=== PATIENT | female | born 1965 | race Caucasian/White ===

== ENCOUNTER 2018-05-01 07:21 | Day surgery (SDC) | payer OTHER ==
[2018-04-11 08:26] VITALS: BMI 37.4
[2018-05-01] MEDS ORDERED: ROPIVACAINE HCL 0.5% 30ML VIAL ONE (08:36)
[2018-05-01] MEDS ORDERED: BUPIVACAINE 0.75% IN DEXTROSE/PF 2ML AMPULE NR ONE (08:38)
[2018-05-01] MEDS ORDERED: MIDAZOLAM HCL 2 MG/2 ML SINGLE DOSE VIAL ONE ×2 (08:38)
[2018-05-01] MEDS ORDERED: ONDANSETRON 4 MG/2 ML VIAL IVPUSH PRN (08:54)
[2018-05-01] MEDS ORDERED: oxyCODONE HCL 5 MG TABLET PO PRN ×2 (08:54)
[2018-05-01] MEDS ORDERED: LACTATED RINGERS SOLUTION 1,000 ML IV SCH (09:00)
--- NOTE | 2018-05-01 09:38 | HP ---
History & Physical Update - History History: No Change - Physical Physical: No Change - Assessment Assessment: No Change - Plan Plan: No Change (Here today for elective robotic BSO. No new complaints or medications.)
[2018-05-01] MEDS ORDERED: PROPOFOL 20 ML ONE ×2 (09:45→11:20)
[2018-05-01] MEDS ORDERED: ceFAZolin 2 GRAM PREMIX BAG IVPB ONE (10:11)
[2018-05-01] MEDS ORDERED: ePHEDrine SULFATE 50 MG/1 ML AMPULE ONE (10:54)
[2018-05-01] MEDS ORDERED: ROCURONIUM BROMIDE 50 MG/5 ML VIAL ONE ×2 (11:01→12:04)
[2018-05-01] MEDS ORDERED: KETAMINE HCL 200 MG/20 ML VIAL ONE (11:04)
[2018-05-01] MEDS ORDERED: KETOROLAC TROMETHAMINE 30 MG/1 ML VIAL ONE (11:04)
[2018-05-01] MEDS ORDERED: ceFAZolin SODIUM 1 GM VIAL ONE (11:11)
[2018-05-01] MEDS ORDERED: DEXAMETHASONE SOD PHOSPHATE 4 MG/1 ML VIAL ONE (11:11)
[2018-05-01] MEDS ORDERED: LIDOCAINE HCL/PF 2% SDV 5ML VIAL ONE (11:11)
[2018-05-01] MEDS ORDERED: SODIUM CHLORIDE 0.9% P/F 10 ML VIAL IJ ONE (11:11)
[2018-05-01] MEDS ORDERED: NEOSTIGMINE METHYLSULFATE 0.5 MG/ML - 10 ML MDV ONE (11:22)
[2018-05-01] MEDS ORDERED: GLYCOPYRROLATE 0.2 MG/1 ML VIAL ONE ×2 (11:24→15:18)
--- NOTE | 2018-05-01 11:58 | SURG ---
Surgery Demonstrator Knitting Note Demonstrator Knitting: Vladimir Cortez PA-C Date of Service: 05/01/18 Diagnosis: ovarian cysts Procedure: Robotic BSO I was present for the entirety of the operative procedure. For further detail, please refer to operative report. Visit type - Case Type Case Type: Scheduled - New patient This patient is new to me today: Yes Date on this admission: 05/01/18
--- NOTE | 2018-05-01 11:58 | OP ---
Operative Note - Note: Operative Date: 05/01/18 Pre-Operative Diagnosis: Ovarian mass Operation: Robotic BSO Post-Operative Diagnosis: Same as Pre-op Surgeon: Crissy Ohara Distribution Tech: Vladimir Cortez Anesthesiologist/HOUSING COURT JUDGE: Sergey Swanson Anesthesia: General Specimens Removed: ovaries Estimated Blood Loss (mls): 12 Fluid Volume Replaced (mls): 1,000 Operative Report Dictated: Yes
[2018-05-01] MEDS ORDERED: ONDANSETRON 4 MG/2 ML VIAL ONE (13:06)
[2018-05-01 16:37] VITALS: BP 119/61; PULSE 81; TEMP 98.1
--- NOTE | 2018-05-01 18:26 | OP ---
DATE OF OPERATION: 05/01/2018 PREOPERATIVE DIAGNOSIS: Left adnexal cyst. POSTOPERATIVE DIAGNOSIS: Left adnexal cyst. PROCEDURE: Robotic assisted bilateral salpingooophorectomy. SURGEON: Crissy Ohara M.D. WELFARE AIDE: Latricia Verduzco ANESTHESIA: General endotracheal anesthesia and local. ESTIMATED BLOOD LOSS: 25 mL. COMPLICATIONS: None. INDICATION: This is a 53-year-old with history of 2 cystic lesions seen on the left ovary. Right ovary was not seen on pelvic ultrasound. The patient was counseled regarding surgical management. Risks, benefits, indications, and alternatives were discussed with patient. All questions were answered. Informed consent was signed. We had discussed possibly uterine hysteroscopy, which she declined. FINDINGS: Left ovary with a large 7-cm cyst which was serous and smooth walled and unilocular and an additional 4-cm cyst which appeared to be an endometrioma and was densely adherent in the left pelvic sidewall and cul-de-sac. The right ovary appeared to be enlarged with old endometriosis as it had been splayed out in the right pelvic sidewall as well as on the rectum medially. The uterus normal, tubes appeared normal. There was no other intraabdominal evidence of disease. There was some evidence of old endometriosis in the pelvis. PROCEDURE: The patient was taken to the operating room, placed in the dorsal supine position. General endotracheal anesthesia was obtained without difficulty. She was placed in the dorsal lithotomy position in Keanu stirrups and prepped and draped in normal sterile fashion. Birch catheter was placed in bladder speculum was placed in the vagina, and the cervix was grasped with a single-toothed tenaculum and sounded to approximately 6 cm. A ZUMI uterine manipulator was then placed. Tenaculum and speculum were then removed. The attention was turned to the patient's abdomen. An 8-mm incision was made with a scalpel while tenting the anterior abdominal wall. The Veress needle was inserted intraabdominally. The abdomen was insufflated with CO2 gas. Additional 8-mm trocar was placed, intraabdominal placement was confirmed by direct visualization of the laparoscope. Additional 8-mm trocars placed in the right middle quadrant and left middle quadrant, and a 12-mm trocar was placed in the suprapubic area in the midline. All trocars were placed and after visualization a thorough exam of the abdomen and pelvis revealed the above noted findings. Peritoneal washings were taken using normal saline. The left adnexa was elevated. The mass was dissected away from the cul-de-sac and gently peeled off the peritoneum. The left retroperitoneum was opened. The left ureter was identified to be well away from the field of dissection, the infundibular pelvic ligament on the left was clamped, cauterized, and transected. This was carried through the broad ligament and the uteroovarian ligament and the fallopian tube at the cornua of the uterus. Upon dissection of the endometrium from the pelvic peritoneum to which it was densely adherent, there was an of dark old blood which was thick and black. The right adnexa was elevated. The right ureter was identified to be well away from the field of dissection. The right infundibular pelvic ligament on the left was clamped, cauterized, and transected. This was carried through the broad ligament and the uteroovarian ligament and the fallopian tube at the cornua of the uterus. The right ovary was densely adherent to the rectum. It was gently peeled away. There appeared to be a small portion of the uterine remnant which was densely adherent to the rectum. This was left to avoid rectal injury. The bilateral adnexa were handed off the field in an EndoCatch bag through the 12-mm incision. Pelvis was thoroughly irrigated and noted to be hemostatic. All trocars removed. The da Jacquelyn robot was then undocked. Skin was closed with 4-0 Monocryl. The suprapubic incision was closed with the fascia using 0 Vicryl in a [id number] stitch. Skin was closed with 4-0 Monocryl. Dermabond was applied. The patient was extubated and transferred in stable condition to the PACU. The Birch catheter was removed prior to extubation. Justin [id number]
--- NOTE | 2018-05-04 14:25 | PATH ---
Cytology Non-Gynecological Report Patient Name: ESPINOZA HECK [facility]. Rec. #: [id number] /Age/Gender: 1965 (Age: 53) / F Account: [id number] Location: AMBULATORY SURG Taken: 05/01/2018 Received: 05/01/2018 Reported: 05/02/2018 Physicians: Crissy Ohara MD Specimen(s) Received PERITONEAL WASHING Clinical History Ovarian cyst Final Diagnosis PERITONEAL WASHING FOR CYTOLOGY: SATISFACTORY FOR EVALUATION. NO MALIGNANT CELLS IDENTIFIED. REACTIVE MESOTHELIAL CELLS AND MACROPHAGES PRESENT. Note: Also see concurrent pathology report [id number]. Electronically Signed Frandy Flower M.D. Gross Description Approximately 60 cc of bloody fluid received fresh. One slide and one cell block prepared.
--- NOTE | 2018-05-04 14:26 | PATH ---
Surgical Pathology Report Patient Name: ESPINOZA HECK [facility]. Rec. #: [id number] /Age/Gender: 1965 (Age: 53) / F Account: [id number] Location: AMBULATORY SURG Taken: 05/01/2018 Received: 05/01/2018 Reported: 05/03/2018 Physicians: Crissy Ohara MD Specimen(s) Received A: CERVICAL POLYP B: RIGHT FALLOPIAN TUBE AND OVARY C: LEFT FALLOPIAN TUBE AND OVARY WITH CYST Clinical History Cyst of the ovary Final Diagnosis A. CERVICAL POLYP, BIOPSY: FRAGMENTS OF ENDOCERVICAL POLYP AND BENIGN CERVICAL SQUAMOUS MUCOSA. B. FALLOPIAN TUBE AND OVARY, RIGHT, ROBOTIC SALPINGO-OOPHORECTOMY: OVARY WITHOUT SIGNIFICANT PATHOLOGIC FINDINGS. FALLOPIAN TUBE WITH PARATUBAL CYST. DENSE FIBROUS ADHESIONS. C. OVARY, CYST, FALLOPIAN TUBE, LEFT, ROBOTIC SALPINGO-OOPHORECTOMY: OVARY WITH SEROUS CYSTADENOMA AND ENDOMETRIOMA. FALLOPIAN TUBE WITH ENDOSALPINGOSIS. DENSE FIBROUS ADHESIONS. Electronically Signed Maribell Ford M.D. Gross Description A. Received in formalin labeled "cervical polyp," is a 0.8 x 0.3 x 0.2 cm domingo-pink soft tissue fragment admixed with blood-tinged mucous. The formalin is filtered and the specimen is entirely submitted in one cassette. B. Received in formalin labeled "right fallopian tube and ovary," is a 4.5 cm in length fimbriated fallopian tube. The outer surface is domingo-pink with tubal ovarian adhesions and a 0.7 cm greatest dimension paratubal cyst attached to the fimbria. Sectioning reveals an unremarkable lumen. The right ovary measures 3.8 x 1.5 x 0.7 cm. The outer surface is domingo yellow, smooth and convoluted. Sectioning reveals unremarkable ovarian parenchyma. Retail Coverage Merchandiser sections are submitted in 3 cassettes as follows: 1-fimbria; 2-cross sections of fallopian tube; 3-ovary. C. Received in formalin labeled "left fallopian tube, ovary and cyst," is a 6 cm in length fimbriated fallopian tube with an 8.0 x 5.5 x 2.5 cm attached cystic structure. The outer surface of the fallopian tube is domingo-pink with tubal ovarian adhesions at the fimbria. Sectioning reveals an unremarkable fallopian tube lumen. The outer surface of the attached cyst is domingo-pink and smooth with a focal defect. Sectioning reveals a focus of thickened cyst wall with inner lining excrescences. The remaining inner lining is domingo-pink and smooth. No normal ovarian parenchyma is identified. Retail Coverage Merchandiser sections are submitted in 10 cassettes as follows: 1-fimbria; 2-cross sections of fallopian tube; 3-6-area of thickened cyst wall and excrescences; 0-65-kwkghfqfmw branch customer service representative cyst. 05/01/2018 [facility]05/01/2018
== END 2018-05-01 16:20 | disposition home or self-care (01) ==
LOC: JASUSAT 07:21
PROVIDERS: ATTEND Obstetrics & Gynecology Gynecologic Oncology
PROC: 0UB74ZZ Excision of Bilateral Fallopian Tubes, Percutaneous Endoscopic Approach (ICD-10-PCS; 2018-05-01)
PROC: 8E0W8CZ Robotic Assisted Procedure of Trunk Region, Via Natural or Artificial Opening Endoscopic (ICD-10-PCS; 2018-05-01)
PROC: 0UB24ZZ Excision of Bilateral Ovaries, Percutaneous Endoscopic Approach (ICD-10-PCS; principal; 2018-05-01 09:30)
DX: N83.292 Other ovarian cyst, left side (principal); N83.291 Other ovarian cyst, right side; N80.1 Endometriosis of ovary
CPT/HCPCS: 58661; S2900; 82962; 86850; 86900; 86901; 88104; 88305-TC; 88307-TC; 94760

== ENCOUNTER 2018-11-26 07:38 | Day surgery (SDC) | payer OTHER ==
[2018-11-23 13:12] VITALS: BMI 38.5
[2018-11-26 09:21] VITALS: TEMP 98.1
[2018-11-26 10:10] VITALS: BP 122/67; PULSE 73
--- NOTE | 2018-11-27 15:45 | PATH ---
Surgical Pathology Report Patient Name: ESPINOZA HECK [facility]. Rec. #: [id number] /Age/Gender: 1965 (Age: 53) / F Account: [id number] Location: ASU-ENDOSCOPY Taken: 11/26/2018 Received: 11/26/2018 Reported: 11/27/2018 Physicians: Osmar Christensen M.D. Specimen(s) Received RIGHT COLON Clinical History Adenoma surveillance Postoperative diagnosis: Right colon polyp Final Diagnosis COLON, RIGHT, POLYP, BIOPSY: TUBULAR ADENOMA. Electronically Signed Maribell Ford M.D. Gross Description Received in formalin, labeled "right colon polyp" are 4 domingo, irregular portions of soft tissue ranging from 0.2-0.5 cm. in greatest dimension. The specimens are submitted in toto in one cassette. /11/26/2018 saudi11/26/2018
== END 2018-11-26 10:14 | disposition home or self-care (01) ==
LOC: JASU-ENDO 07:38
PROVIDERS: ATTEND Internal Medicine Gastroenterology
PROC: 0DBK8ZX Excision of Ascending Colon, Via Natural or Artificial Opening Endoscopic, Diagnostic (ICD-10-PCS; principal; 2018-11-26 08:45)
DX: Z12.11 Encounter for screening for malignant neoplasm of colon (principal); D12.2 Benign neoplasm of ascending colon; Z86.010 Personal history of colon polyps
CPT/HCPCS: 84703; 88305-TC

== ENCOUNTER → 2021-09-07 | Day surgery (SDC) | payer OTHER | END | disposition home or self-care (01) | LOC: JRADIR 09:15 | PROVIDERS: ATTEND Internal Medicine Endocrinology, Diabetes & Metabolism | PROC: 0G9H3ZX Drainage of Right Thyroid Gland Lobe, Percutaneous Approach, Diagnostic (ICD-10-PCS; principal; 2021-09-07) | DX: E04.1 Nontoxic single thyroid nodule (principal) | CPT/HCPCS: 10005; 76942; 88173; 88305-TC ==

== ENCOUNTER → 2022-03-22 | Day surgery (SDC) | payer OTHER | END | disposition home or self-care (01) | LOC: JRADIR 09:07 | PROVIDERS: ATTEND Internal Medicine Endocrinology, Diabetes & Metabolism | PROC: 0GBG3ZX Excision of Left Thyroid Gland Lobe, Percutaneous Approach, Diagnostic (ICD-10-PCS; principal; 2022-03-22) | DX: E04.1 Nontoxic single thyroid nodule (principal) | CPT/HCPCS: 10005; 76942; 88173; 88305-TC ==